=== PATIENT | female | born 1985 | race Caucasian/White ===

== ENCOUNTER 2021-01-30 14:33 | Emergency (ER) | payer OTHER ==
[~2021-01-30 14:33] MED LIST: ANUSOL HC SUPP1 SUPP PR; ANUSOL-HC CREAM30 GM PR; BENTYL 20MG TAB20 MG PO; CELEBREX100 MG PO; COLACE 100MG C100 MG PO
== END 2021-01-30 17:30 | disposition home or self-care (01) ==
LOC: ER1 14:33
DX: K59.00 Constipation, unspecified (principal); F17.200 Nicotine dependence, unspecified, uncomplicated
CPT/HCPCS: 99283